=== PATIENT | male | born 1960 | race Caucasian/White ===

== ENCOUNTER 2017-05-20 10:41 | Emergency (ER) | payer OTHER ==
[2017-05-20 11:35] LABS: NEGATIVE OBC STREP NEG; POSITIVE OBC STREP POS
[2017-05-20 12:01] LABS: INFLUENZA A PATIENT NEGATIVE (NEGATIVE)
[2017-05-20 12:03] LABS: INFLUENZA B PATIENT POSITIVE (NEGATIVE); OBC FLU VALID
== END 2017-05-20 12:24 | disposition home or self-care (01) ==
LOC: ER 10:41
DX: J09.X2 Influenza due to identified novel influenza A virus with other respiratory manifestations (principal); K21.9 Gastro-esophageal reflux disease without esophagitis; I10 Essential (primary) hypertension; F17.200 Nicotine dependence, unspecified, uncomplicated
CPT/HCPCS: 87070; 87804; 87804-59; 87880; 99284

== ENCOUNTER 2017-12-10 12:16 | Emergency (ER) | payer OTHER ==
[2017-12-10 14:03] LABS: ADD MAN DIFF? NO
[2017-12-10 14:08] LABS: BASO # 0.1 x10^3/uL (0.0-0.2); BASO % 1 % (0-3); EOS # 0.1 x10^3/uL (0.0-0.7); EOS % 1 % (0-3); HEMATOCRIT 46.1 % (39.0-53.0); HEMOGLOBIN 15.8 g/dL (13.0-17.5); LYMPH # 2.1 x10^3/uL (1.0-4.8); LYMPH % 26 % (24-48); MEAN CORPUSCULAR HEMOGLOBIN 30 pg (25-35); MEAN CORPUSCULAR HGB CONC 34 g/dL (31-37); MEAN CORPUSCULAR VOLUME 89 fL (79-100); MONO # 0.5 x10^3/uL (0.0-1.1); MONO % 7 % (0-9); NEUT # 5.4 x10^3uL (1.8-7.7); NEUT % 66 % (31-73); PLATELET COUNT 198 x10^3/uL (140-400); RED BLOOD COUNT 5.21 x10^6/uL (4.30-5.70); RED CELL DISTRIBUTION WIDTH 15.2 % (11.5-14.5); WHITE BLOOD COUNT 8.1 x10^3/uL (4.0-11.0)
[2017-12-10 14:24] LABS: BILIRUBIN,URINE NEGATIVE (NEG); CLARITY,URINE CLEAR; COLOR,URINE YELLOW; GLUCOSE,URINE NEGATIVE (NEG); NITRITE,URINE NEGATIVE (NEG); PROTEIN,URINE NEGATIVE (NEG-TRACE); UROBILINOGEN,URINE 0.2 mg/dL (0.2 mg/dL)
[2017-12-10 14:32] LABS: ANION GAP 10 (6-14); BLOOD UREA NITROGEN 15 mg/dL (8-26); CARBON DIOXIDE 25 mmol/L (21-32); CHLORIDE 102 mmol/L (98-107); CREATININE 0.8 mg/dL (0.7-1.3); GFR 99.3; GLUCOSE 99 mg/dL (70-99); MAGNESIUM 2.3 mg/dL (1.8-2.4); SODIUM 137 mmol/L (136-145)
[2017-12-10 14:43] LABS: BARBITURATES NEG (NEG); BENZODIAZEPINES NEG (NEG); CANNABINOIDS NEG (NEG); COCAINE NEG (NEG); METHADONE NEG (NEG); OPIATES NEG (NEG); PHENCYCLIDINE NEG (NEG)
[2017-12-10 14:45] LABS: THYROID STIM HORMONE (TSH) 1.413 uIU/mL (0.358-3.74)
[2017-12-10 14:50] LABS: TROPONINI < 0.017 ng/mL (0.000-0.055)
[2017-12-10 14:51] LABS: AMPHETAMINE/METHAMPHETAMINE NEG (NEG); ETHANOL, URINE NEG (NEG)
[2017-12-10 14:53] LABS: CKMB INDEX 0.8 % (0-4); CKMB MASS 1.6 ng/mL (0.0-3.6); CREATINE KINASE 197 U/L (39-308)
[2017-12-10 14:53] LABS: NT-PRO BNP 46 pg/mL (0-124)
[2017-12-10 15:00] LABS: AMORPHOUS SEDIMENT,UR PRESENT /HPF; BACTERIA,URINE FEW /HPF (0-FEW); RBC,URINE 0 /HPF (0-2); SQUAMOUS EPITHELIAL CELL,UR OCC /LPF; WBC,URINE OCC /HPF (0-4)
== END 2017-12-10 15:37 | disposition home or self-care (01) ==
LOC: ER 15:37
DX: R42 Dizziness and giddiness (principal); R06.02 Shortness of breath; I10 Essential (primary) hypertension; K21.9 Gastro-esophageal reflux disease without esophagitis
CPT/HCPCS: 36415; 71045; 80048; 80307; 81001; 82553; 83735; 83880; 84443; 84484; 85025; 93005; 99285-25

== ENCOUNTER 2017-12-12 10:36 | Emergency (ER) | payer OTHER ==
[2017-12-12] MEDS: KETOROLAC 15 MG/ML VIAL. IM (11:25)
== END 2017-12-12 11:36 | disposition home or self-care (01) ==
LOC: ER 10:36
DX: M43.6 Torticollis (principal); I10 Essential (primary) hypertension; K21.9 Gastro-esophageal reflux disease without esophagitis
CPT/HCPCS: 96372; 99283; J1885